=== PATIENT | female | born 1940 | race Caucasian/White ===

== ENCOUNTER 2022-10-21 13:13 | Outpatient (CLI) | payer MEDICARE, SELFPAY ==
--- NOTE | ~2022-10-21 | MR_ITS ---
EXAMINATION: MR brain/brain stem wo con DATE: 10/21/2022 14:15 INDICATION: Expressive aphasia and cognitive decline TECHNIQUE: Magnetic resonance imaging (MRI) of the brain and brainstem was performed without intraven ous contrast. Sequences included sagittal and axial T1-weighted SE, axial diffusion-weighted FS SE, a xial T2*-weighted GRE, axial 3D SWAN, axial T2-weighted FLAIR, and axial T2-weighted FSE. Apparent di ffusion coefficient (ADC) maps were created. COMPARISON: None. FINDINGS: There are no areas of restricted diffusion to suggest acute infarction. No intracranial hemorrhage or abnormal intracranial mass lesion. There are scattered areas of nonspecific increased T2-weighted si gnal intensity in the cerebral white matter, predominantly involving the deep and periventricular whi te matter which is within normal limits for age and likely sequela of chronic small vessel ischemic d isease. There are no intraparenchymal signal abnormalities seen on the other pulse sequences. The gege tricles are symmetric and normal in size. There are no abnormal extra-axial fluid collections. Flow v oids are seen in the cerebral arteries on the T2-weighted sequences consistent with their expected pa tency. Left vertebral artery is dominant. Changes of bilateral intraocular lens replacement. Visuali zed orbits and soft tissues are unremarkable. IMPRESSION: 1. Mild scattered nonspecific white matter T2 hyperintensity which is within normal limits for age an d likely sequela of chronic small vessel ischemic disease. No acute intracranial process. Reviewed, dictated and finalized at location A. IMPRESSION: 1. Mild scattered nonspecific white matter T2 hyperintensity which is within no rmal limits for age and likely sequela of chronic small vessel ischemic disease . No acute intracranial process.
== END 2022-10-21 13:14 | disposition home or self-care (01) ==
PROVIDERS: PCP Family Medicine; Visit Provider Family Medicine
DX: R47.01 Aphasia (principal); R41.89 Other symptoms and signs involving cognitive functions and awareness; R93.0 Abnormal findings on diagnostic imaging of skull and head, not elsewhere classified
CPT/HCPCS: 70551

== ENCOUNTER 2024-04-11 14:41 | Emergency (ER) | payer MEDICARE, SELFPAY ==
[2024-04-11 14:56] VITALS: BP 147/78; PULSE 75; RESP 16; TEMP 36.3; O2SAT 97
--- NOTE | 2024-04-11 15:23 | ED.EAR ---
HPI - Ear Problem General Chief complaint: Ear Stated complaint: both ears blocked Time Seen by Provider: 04/11/24 15:24 Source: patient, RN notes reviewed and old records reviewed Mode of arrival: ambulatory Limitations: no limitations and dementia History of Present Illness HPI Narrative: Patient with dementia presents accompanied by her daughter. Daughter reports that patient has frequent cerumen impactions. Family has been using Debrox with moderate relief. Patient complaining decreased hearing and feeling a fullness in the ears Related Data Allergies Allergy/AdvReac Type Severity Reaction Status Date / Time No Known Allergies Allergy Verified 04/11/24 14:42 Review of Systems Review of Systems: All systems reviewed & are unremarkable except as noted in HPI and below Constitutional: Constitutional: Reports no additional constitutional complaints ENT: Reports system reviewed and no additional complaints, except as documented, Reports as per HPI and Reports hearing loss Cardiovascular: Cardiovascular: Reports no additional cardiovascular complaints Respiratory: Respiratory: Reports no additional respiratory complaints Gastrointestinal: Gastrointestinal: Reports no additional gastrointestinal complaints [facility] Past Medical History Medical History (Updated 04/11/24 @ 15:56 by Yael Jennings APRN) Acquired hypothyroidism Alzheimer disease Essential (primary) hypertension Hyperlipidemia, unspecified Impaired fasting glucose Polymyalgia rheumatica Right shoulder pain Social History Social History Smoking status: Never smoker Alcohol intake: never Substance use: never Substance use type: does not use Do You Feel Safe in your Home?: Yes Lack of Transportation: No Lack of Food: Never True Current Housing: I Have Housing Concerned About Future Housing: No Difficulty Paying Gas/Electric Bills: No Difficulty Paying for Meds: No Currently Unemployed: No Education: High School Diploma/GED Difficulty w/ Childcare or Family Care: No Living arrangements: with family Occupation/Education: retired Gender identity (if verbalized by the patient): Female Sexual Orientation (if Verbalized by the Patient): Straight or Heterosexual Spiritual care concerns: No Comments At the time of my signature, I reviewed and agree with the nursing past medical, surgical, social, and family history. There is no relevant family history pertinent to the patient complaint. Exam Const: General: cooperative, no acute distress, alert and awake Orientation/consciousness: oriented to person, oriented to place and oriented to time HENMT: Head: normal to inspection Ears: Abnormal EAC present cerumen impaction bilateral Mouth: Yes moist mucous membranes Resp: Effort & Inspection: normal respiratory effort and able to speak in complete sentences Auscultation: clear to auscultation bilaterally, no crackles, no rales, no rhonchi and no wheezes Cardio: Palpation: normal PMI Rate: regular rate Rhythm: regular rhythm Heart sounds: S1 normal heart sound present and S2 normal heart sound present Neuro: General: oriented to person, oriented to place and oriented to time Cranial nerves: Yes CN's II-XII intact bilaterally Psych: Appearance: grossly normal Thought process: Normal thought process present Insight: Good insight present (Psych) Judgement: Good judgement present (Psych) Course Course Level of Care: Express Care Visit Vital Signs Vital signs: Vital Signs Temperature 97.3 F L 04/11/24 14:56 Pulse Rate 75 04/11/24 14:56 Respiratory Rate 16 04/11/24 14:56 Blood Pressure 147/78 H 04/11/24 14:56 Pulse Oximetry 97 04/11/24 14:56 Oxygen Delivery Room Air 04/11/24 14:56 Temperature 97.3 F L 04/11/24 14:56 Pulse Rate 75 04/11/24 14:56 Respiratory Rate 16 04/11/24 14:56 Blood Pressure 147/78 H 04/11/24 14:56 Pulse Oximetry 97 04/11/24 14:56 Oxygen Delivery Room Air 04/11/24 14:56 Reviewed Procedures Ear Wax Removal Both Ears: Cerumenolytic Used: other Results: Re-examined: cerumen removed completely TM Examination: TM(s) intact, normal appearance Ear Canal Exam: atraumatic Patient Tolerated Procedure: well Complications: no problems Technique: ear canal irrigated Medical Decision Making [facility] Narrative Medical decision making narrative: Bilateral cerumen impactions easily removed with irrigation. No complications Discharge instructions reviewed with patient, as well as provided in writing per nursing staff. The instructions also include specific and strict return/GO TO THE ER as well as f/u information. All questions have been answered, and the patient deny any further questions with discharge and discharge plan. Some parts of this dictation were generated by voice recognition software and may contain typographical and/or grammatical inaccuracies. Vital Signs Vital Signs: Vital Signs Temperature 97.3 F L 04/11/24 14:56 Pulse Rate 75 04/11/24 14:56 Respiratory Rate 16 04/11/24 14:56 Blood Pressure 147/78 H 04/11/24 14:56 Pulse Oximetry 97 04/11/24 14:56 Oxygen Delivery Room Air 04/11/24 14:56 Temperature 97.3 F L 04/11/24 14:56 Pulse Rate 75 04/11/24 14:56 Respiratory Rate 16 04/11/24 14:56 Blood Pressure 147/78 H 04/11/24 14:56 Pulse Oximetry 97 04/11/24 14:56 Oxygen Delivery Room Air 04/11/24 14:56 reviewed Lab Data Lab results reviewed: Yes I reviewed the patient's lab results. Lab results narrative: reviewed Discharge Plan Discharge Clinical Impression: Cerumen impaction Qualifiers: Laterality: bilateral Qualified Code(s): H61.23 - Impacted cerumen, bilateral Patient Disposition: Home, Self-Care Condition: Stable Instructions: Antibiotic Form, Carbamide Peroxide (Into the ear) Additional Instructions: Follow-up with primary care provider. Emergency department for new or worsened symptoms Patient Language: Lebanese Prescriptions: No Action levothyroxine 75 mcg tablet 75 mcg PO DAILY Qty: 100 1RF metoprolol succinate 50 mg tablet extended release 24 hr 50 mg PO DAILY Qty: 100 1RF prednisone 10 mg tablet 10 mg PO DAILY Qty: 100 1RF Follow-up/Referrals: Yair Acharya MD [Primary Care Provider] - 2 Weeks Time of Disposition: 15:56
== END 2024-04-11 16:02 | disposition home or self-care (01) ==
PROVIDERS: Emergency Provider Nurse Practitioner Family; PCP Family Medicine
DX: H61.23 Impacted cerumen, bilateral (principal); E03.9 Hypothyroidism, unspecified; I10 Essential (primary) hypertension; E78.5 Hyperlipidemia, unspecified; M35.3 Polymyalgia rheumatica
CPT/HCPCS: 69209; 99212; G0463

== ENCOUNTER 2024-07-21 13:09 | Emergency (ER) | payer MEDICARE, SELFPAY ==
--- NOTE | ~2024-07-21 | XR_ITS ---
EXAM: XR knee RT 3V DATE: 07/21/2024 20:47 HISTORY: Pain status post fall . COMPARISON: None available. FINDINGS: Osteopenia. No fracture or dislocation. No lytic or blastic lesion. Tricompartmental osteo arthritic arthritis, moderate in the medial compartment. Quadriceps enthesopathy. No erosion or perio steal change. Soft tissues within normal limits. IMPRESSION: No acute osseous finding in the right knee. Reviewed, dictated and finalized at location K. PRODUCTION ENGINEER
--- NOTE | ~2024-07-21 | XR_ITS ---
EXAM: XR hip RT 2V w AP pelvis DATE: 07/21/2024 20:47 HISTORY: Pain status post fall . COMPARISON: None available. FINDINGS: Normal mineralization. No fracture or dislocation. No lytic or blastic lesion. Degenerativ e changes in the lumbar spine and bilateral hips. No erosion or periosteal change. Soft tissues withi n normal limits. IMPRESSION: No acute osseous finding in the pelvis or right hip. Reviewed, dictated and finalized at location K. OL COUNSELLOR
--- NOTE | ~2024-07-21 | XR_ITS ---
EXAMINATION: [id number] Exam Date/Time: 07/21/2024 20:30 BODY TECHNICIAN HISTORY: Pain status post fall Comparison: X-ray chest 03/28/2013. RESULT: Lines, tubes, and devices: None. Lungs and pleura: Mild peripheral reticular opacities. Mild left lateral costophrenic angle blunting . Cardiomediastinal silhouette: Stable. Other: No acute osseous or upper abdominal finding. IMPRESSION: Mild interstitial edema. Small left pleural effusion. No acute osseous finding in the bilateral ribs Reviewed, dictated and finalized at location K. TECHNICIAN
--- NOTE | ~2024-07-21 | CT_ITS ---
CT OF right ankle EXAMINATION: CT ankle RT wo con DATE: 07/21/2024 22:03 INDICATION: Ankle pain status post fall. TECHNIQUE: Computed tomography (CT) of the right ankle was performed without intravenous contrast. Au tomated exposure control and iterative reconstruction technique were employed. The dose-length produc t was 392.99 mGy-cm. COMPARISON: X-ray right ankle, same date FINDINGS: Exam limited by obliquity in the coronal and sagittal reformats. Decreased mineralization. Mild degen erative change at the tibiotalar joint and multiple midfoot joints. Moderate Achilles and mild planta r enthesopathy. No fracture or dislocation. No lytic or blastic lesion. No erosion or periosteal sotomayor ge. The flexor and extensor tendons appear to be intact. IMPRESSION: No acute osseous finding in the right ankle. Reviewed, dictated and finalized at location K. ED
--- NOTE | ~2024-07-21 | XR_ITS ---
EXAM: XR ankle RT 2V DATE: 07/21/2024 20:47 HISTORY: Pain status post fall . COMPARISON: None available. FINDINGS: Normal mineralization. Question of a transverse medial malleolar fracture, possibly acute or chronic, versus artifact. No other fracture identified. No lytic or blastic lesion. Mild degenerat dom change at the ankle joint and multiple midfoot joints. Moderate Achilles and plantar enthesopathy . No erosion or periosteal change. Soft tissues within normal limits. IMPRESSION: Possible acute or chronic medial malleolar fracture, versus artifact. If there is no medi al malleolus tenderness this is likely a chronic finding or artifact. If there is medial malleolus te nderness, recommend a complete ankle series to include oblique and ankle mortise views. Reviewed, dictated and finalized at [facility] K. E MANUFACTURE SUPERVISOR IMPRESSION: Possible acute or chronic medial malleolar fracture, versus artifac t. If there is no medial malleolus tenderness this is likely a chronic finding or artifact. If there is medial malleolus tenderness, recommend a complete ankl e series to include oblique and ankle mortise views.
[2024-07-21 13:17] VITALS: BP 156/76; PULSE 83; RESP 20; TEMP 36.4; O2SAT 99
[2024-07-21 18:20] VITALS: BP 155/75; PULSE 63; RESP 18; TEMP 36.4; O2SAT 98
--- NOTE | 2024-07-21 20:31 | ED_ITS ---
HPI - General Adult General Chief complaint: Fall Stated complaint: fall x2 days ago, R. rib and R. leg pain Time Seen by Provider: 07/21/24 19:44 History of Present Illness HPI narrative: Patient a 4-year-old female who presents emergency department with chief complaint of right leg and right rib pain status post fall on the . Patient was walking and got stuck in the mud fell landed on the right side of her body the patient reports she has pain in the ribs hip knee and ankle patient does have history of Alzheimer's and history is provided from the family Related Data Allergies Allergy/AdvReac Type Severity Reaction Status Date / Time No Known Allergies Allergy Verified 07/21/24 13:10 Review of Systems Review of Systems: A 10 system review of systems was completed on the patient and is negative except for what is stated in the HPI. Nursing and ancillary documentation was reviewed. [facility] Past Medical History Medical History Alzheimer disease Right shoulder pain Polymyalgia rheumatica Impaired fasting glucose Hyperlipidemia, unspecified Acquired hypothyroidism Essential (primary) hypertension Social History Social History Smoking status: Never smoker Alcohol intake: never Substance use: never Substance use type: does not use Do You Feel Safe in your Home?: Yes Lack of Transportation: No Lack of Food: Never True Current Housing: I Have Housing Concerned About Future Housing: No Difficulty Paying Gas/Electric Bills: No Difficulty Paying for Meds: No Currently Unemployed: No Education: High School Diploma/GED Difficulty w/ Childcare or Family Care: No Living arrangements: with family Occupation/Education: retired Gender identity (if verbalized by the patient): Female Sexual Orientation (if Verbalized by the Patient): Straight or Heterosexual Spiritual care concerns: No Exam Narrative: GENERAL: Well-appearing, well-nourished, and in no acute distress. HEAD: Normocephalic, atraumatic. EYES: PERRLA and EOMI. ENT: Nares clear, no rhinorrhea or epistaxis. Mucous membranes moist. NECK: Supple. CHEST: Clear to auscultation. No respiratory distress. Chest wall is tender to palpation on the right lower chest wall HEART: Regular rate and rhythm. No murmur heard. Normal peripheral pulses. ABDOMEN: Soft, nontender, nondistended, normal active bowel sounds. EXTREMITIES: Normal range of motion tenderness to palpation in the right hip right knee and right ankle in. No edema. SKIN: Warm, dry, no rash. NEURO: No focal deficits. Alert and oriented the patient blood. PSYCH: Normal mood and affect. Course Vital Signs Vital signs: Vital Signs Temperature 36.4 C 07/21/24 13:17 Pulse Rate 83 07/21/24 13:17 Respiratory Rate 20 07/21/24 13:17 Blood Pressure 156/76 H 07/21/24 13:17 Pulse Oximetry 99 07/21/24 13:17 Oxygen Delivery Room Air 07/21/24 13:17 Temperature 36.4 C L 07/21/24 18:20 Pulse Rate 63 07/21/24 18:20 Respiratory Rate 18 07/21/24 18:20 Blood Pressure 155/75 H 07/21/24 18:20 Pulse Oximetry 98 07/21/24 18:20 Oxygen Delivery Room Air 07/21/24 13:17 Medical Decision Making [facility] Narrative Medical decision making narrative: differential diagnosis includes fracture, contusion plain film x-rays were obtained of the hip ribs ankle and knee the showed possible fracture in the malleolus on the ankle a CT scan was obtained of the ankle that showed no evidence of fracture Vital Signs Vital Signs: Vital Signs Temperature 36.4 C 07/21/24 13:17 Pulse Rate 83 07/21/24 13:17 Respiratory Rate 20 07/21/24 13:17 Blood Pressure 156/76 H 07/21/24 13:17 Pulse Oximetry 99 07/21/24 13:17 Oxygen Delivery Room Air 07/21/24 13:17 Temperature 36.4 C L 07/21/24 18:20 Pulse Rate 63 07/21/24 18:20 Respiratory Rate 18 07/21/24 18:20 Blood Pressure 155/75 H 07/21/24 18:20 Pulse Oximetry 98 07/21/24 18:20 Oxygen Delivery Room Air 07/21/24 13:17 Discharge Plan Discharge Clinical Impression: Fall from ground level, Right ankle sprain, Contusion of rib Patient Disposition: Home, Self-Care Condition: Stable Instructions: Antibiotic Form, Contusion in Adults (ED), Rib Contusion (ED) Patient Language: Azeri Prescriptions: No Action prednisone 5 mg tablet 5 mg PO DAILY Qty: 90 1RF donepezil 5 mg tablet 5 mg PO QHS Qty: 90 1RF metoprolol succinate 50 mg tablet extended release 24 hr 50 mg PO DAILY Qty: 100 1RF levothyroxine 75 mcg tablet 75 mcg PO DAILY Qty: 100 1RF Follow-up/Referrals: Yair Acharya MD [Primary Care Provider] - Time of Disposition: 22:22
== END 2024-07-21 22:40 | disposition home or self-care (01) ==
PROVIDERS: Emergency Provider Emergency Medicine; PCP Family Medicine
DX: S93.401A Sprain of unspecified ligament of right ankle, initial encounter (principal); S20.219A Contusion of unspecified front wall of thorax, initial encounter; W18.30XA Fall on same level, unspecified, initial encounter; G30.9 Alzheimer's disease, unspecified; F02.80 Dementia in other diseases classified elsewhere, unspecified severity, without behavioral disturbance, psychotic disturbance, mood disturbance, and anxiety; E78.5 Hyperlipidemia, unspecified; E03.9 Hypothyroidism, unspecified; I10 Essential (primary) hypertension
CPT/HCPCS: 71111; 73502; 73562; 73600; 73700; 99284